=== PATIENT | male | born 1995 | race African-American/Black ===

== ENCOUNTER 2018-11-11 11:26 | Emergency (ER) | payer MEDICAID ==
[~2018-11-11] VITALS: Ht 182.9 cm; Wt 68.0 kg
[~2018-11-11 11:26] MED LIST: FAMO10TA48; ONDA4TAB5; PANTPAK; RANI-185; SUCR1TAB36
[2018-11-11] MEDS ORDERED: PANTOPRAZOLE 40 MG/10 ML VIAL IV STA (11:34)
[2018-11-11] MEDS ORDERED: SODIUM CHLORIDE 0.9% 1,000 ML IVB ONE (11:34)
[2018-11-11 11:45] VITALS: BP 115/88
[2018-11-11] MEDS ORDERED: MORPHINE SULFATE 4 MG/ML SYR/VIAL IV ONE (11:45)
[2018-11-11] MEDS ORDERED: PROCHLORPERAZINE EDISYLATE 5 MG/ML 2ML VIAL IV ONE (11:45)
== END 2018-11-11 13:55 | disposition left against medical advice (07) ==
LOC: ER 11:26 → EDBD 11:26 → ER 13:55
DX: R10.84 Generalized abdominal pain (principal); F12.188 Cannabis abuse with other cannabis-induced disorder; R11.10 Vomiting, unspecified; K21.9 Gastro-esophageal reflux disease without esophagitis; Z79.899 Other long term (current) drug therapy; Z90.49 Acquired absence of other specified parts of digestive tract; Z53.29 Procedure and treatment not carried out because of patient's decision for other reasons
CPT/HCPCS: 94761; 96361; 96374; 96375; 99283; C9113; J0780; J2270; J7030

== ENCOUNTER 2019-03-08 19:04 | Emergency (ER) | payer MEDICAID ==
[~2019-03-08] VITALS: Ht 185.4 cm; Wt 68.0 kg
[2019-03-08] MEDS ORDERED: KETOROLAC TROMETH 30 MG/ML 1ML VIAL IV ONE (19:30)
[2019-03-08] MEDS ORDERED: SODIUM CHLORIDE 0.9% 1,000 ML IVB ONE (19:36)
[2019-03-08] MEDS ORDERED: KETOROLAC TROMETH 60MG/2ML VIAL ONE (19:37)
[2019-03-08 20:01] LABS: Basophils # (auto) 0.1 uL; Basophils % (auto) 0.9 % (0.0-2.0); Eosinophils # (auto) 0.1 uL; Eosinophils % (auto) 0.6 % (0.0-7.0); Hemoglobin 16.1 g/dL (13.5-17.5); Lymphocytes # (auto) 1.9 uL; Lymphocytes % (auto) 19.1 % (10.0-50.0); Mean Corpuscular Hemoglobin 29.7 pg (28.0-32.0); Mean Corpuscular Hgb Conc. 34.4 g/dL (32.0-36.0); Mean Corpuscular Volume 86.4 fL (80.0-100.0); Monocytes # (auto) 0.6 uL; Monocytes % (auto) 6.1 % (0.0-12.0); Neutrophils # (auto) 7.3 uL; Neutrophils % (auto) 73.3 % (37.0-80.0); Nucleated Red Blood Cells % 0.5 %; Platelet Count (auto) 299 10^3/uL (140-450); Red Blood Cells 5.44 10^6/uL (4.5-5.90); Red Cell Distribution Width 12.8 % (11.8-14.3)
[2019-03-08 20:08] LABS: Potassium 3.3 mmol/L (3.5-5.1)
[2019-03-08 20:12] LABS: Albumin 4.3 g/dL (3.4-5.0); BUN/Creatinine Ratio 7.8; Calcium 8.5 mg/dL (8.5-10.1)
[2019-03-08 20:14] LABS: Bilirubin, Total 0.8 mg/dL (0.2-1.0); Total Protein 7.7 g/dL (6.4-8.2)
[2019-03-08] MEDS ORDERED: diphenhdrAMINE HCL 50 MG/1 ML VL IV ONE (20:30)
[2019-03-08] MEDS ORDERED: ONDANSETRON HCL 4 MG/2 ML VIAL IV ONE (21:15)
[2019-03-08] MEDS ORDERED: MORPHINE SULF INJ 2 MG/ML SYRINGE 1ML IV ONE (21:15)
[2019-03-08] MEDS ORDERED: PANTOPRAZOLE 40 MG TAB PO ONE (21:15)
[2019-03-08 21:20] VITALS: BP 152/81
== END 2019-03-08 22:05 | disposition left against medical advice (07) ==
LOC: EDBD 19:04 → ER 19:12
DX: K29.70 Gastritis, unspecified, without bleeding (principal); K21.9 Gastro-esophageal reflux disease without esophagitis; Z90.49 Acquired absence of other specified parts of digestive tract; Z90.89 Acquired absence of other organs; Z87.11 Personal history of peptic ulcer disease; Z79.899 Other long term (current) drug therapy
CPT/HCPCS: 36415; 74176; 80053; 83690; 83735; 85025; 94761; 96361; 96374; 96375; 99284; J1200; J1885; J2270; J2405; J7030

== ENCOUNTER 2020-06-23 19:23 | Emergency (ER) | payer MEDICAID ==
[~2020-06-23 19:23] MED LIST changes: -FAMO10TA48; +FAMO1TAB; +ONDA-144; -ONDA4TAB5
[2020-06-23] MEDS ORDERED: HYDROcodone-ACET 5/325MG TAB PO ONE (20:30)
[2020-06-23 20:50] VITALS: BP 120/75
== END 2020-06-23 21:48 | disposition home or self-care (01) ==
LOC: ER 19:23
DX: S83.8X1A Sprain of other specified parts of right knee, initial encounter (principal); S93.491A Sprain of other ligament of right ankle, initial encounter; S40.811A Abrasion of right upper arm, initial encounter; S80.811A Abrasion, right lower leg, initial encounter; K21.9 Gastro-esophageal reflux disease without esophagitis; Z79.899 Other long term (current) drug therapy; Z87.11 Personal history of peptic ulcer disease; Z90.89 Acquired absence of other organs; Z90.49 Acquired absence of other specified parts of digestive tract; V29.9XXA Motorcycle rider (driver) (passenger) injured in unspecified traffic accident, initial encounter; Y93.I9 Activity, other involving external motion; Y92.89 Other specified places as the place of occurrence of the external cause; Y99.8 Other external cause status
CPT/HCPCS: 72040; 73110; 73562; 73610

== ENCOUNTER 2021-04-18 21:19 | Emergency (ER) | payer MEDICAID ==
[~2021-04-18] VITALS: Ht 182.9 cm; Wt 63.5 kg
[2021-04-18 21:19] VITALS: BP 109/64
[~2021-04-18 21:19] MED LIST changes: +FAMO10TA41; -FAMO1TAB
== END 2021-04-18 22:34 | disposition left against medical advice (07) ==
LOC: ER 21:19
DX: M79.604 Pain in right leg (principal); Z53.21 Procedure and treatment not carried out due to patient leaving prior to being seen by health care provider

== ENCOUNTER → 2024-06-29 | Day surgery (SDC) | payer MEDICAID ==
[~2024-06-29] VITALS: Ht 182.9 cm; Wt 59.0 kg
[~2024-06-29] MED LIST changes: +ALPR0.25 PO; +CYCL-839 PO; +DexAMETHasone SOD PHOS 10MG/1ML VIAL INJ ONE; -FAMO10TA41; +KETAMINE 50mg/ML 1ml syringe ONE; +MEPERIDINE HCL (25 MG/ML) 1ML VIAL ONE; +MIDAZOLAM HCL 2MG/2ML 2ml VIAL (1mg/ml) ONE; -ONDA-144; +ONDANSETRON HCL 4 MG/2 ML VIAL IV ONE; +PANT40T PO; +PROPOFOL 10 MG/ML 20 ML IV ONE; -RANI-185; -SUCR1TAB36; +ZOLP10TA PO; +ZOLP5TAB5 PO; +[UNRECOGNIZED DRUG - CODE] PO; +fentaNYL CITRATE 100 MCG/2 ML VL ONE
[2024-06-29 08:14] LABS: Urine Bacteria None Seen /hpf (None Seen)
[2024-06-29 08:22] LABS: Urine Blood Negative /uL (Negative); Urine Clarity Clear (Clear); Urine Color Yellow (Yellow); Urine Mucus FEW (None Seen); Urine Protein, UAD 1+ (Negative); Urine Specific Gravity 1.037 (1.001-1.035); Urine Urobilinogen Normal (Negative); Urine WBC 2 /hpf (0 - 3); Urine pH 5.5 (5.0-9.0)
[2024-06-29 08:32] LABS: Basophils # (auto) 0.1 10 ^3/uL (0-0.2); Basophils % (auto) 1.2 % (0.0-2.0); Eosinophils # (auto) 0.1 10 ^3/uL (0-0.8); Eosinophils % (auto) 1.7 % (0.0-7.0); Hemoglobin 16.5 g/dL (13.5-17.5); INR 1.13 (0.9-1.15); Lymphocytes # (auto) 1.8 10 ^3/uL (0.4-5.4); Lymphocytes % (auto) 22.4 % (10.0-50.0); Mean Corpuscular Volume 88.6 fL (80.0-100.0); Monocytes # (auto) 0.7 10 ^3/uL (0-1.3); Monocytes % (auto) 8.3 % (0.0-12.0); Neutrophils # (auto) 5.4 10 ^3/uL (1.6-8.6); Neutrophils % (auto) 66.4 % (37.0-80.0); Nucleated Red Blood Cells % 0.1 %; Partial Thromboplastin Time 30.2 SEC (24.5-34.5); Platelet Count (auto) 296 10^3/uL (140-450); Prothrombin Time 11.9 sec (9.3-11.8); Red Blood Cells 5.31 10^6/uL (4.5-5.90); Red Cell Distribution Width 13.8 % (11.8-14.3); White Blood Cell 8.2 10^3/uL (4.4-10.8)
[2024-06-29 09:31] LABS: Alanine Aminotransferase 12 U/L (7-40); Albumin 4.8 g/dL (3.2-4.8); Alkaline Phosphatase 63 U/L (46-116); Anion Gap 8 (5-15); Aspartate Aminotransferase 14 U/L (13-40); Blood Urea Nitrogen 9 mg/dL (9-23); Calcium 10.3 mg/dL (8.7-10.4); Carbon Dioxide 27 mmol/L (20-31); Chloride 108 mmol/L (98-107); Glucose 81 mg/dL (74-106); Potassium 4.5 mmol/L (3.5-5.1); Sodium 143 mmol/L (136-145)
[2024-06-29 09:32] LABS: Total Protein 7.5 g/dL (5.7-8.2)
[2024-06-29 09:47] VITALS: TEMP 98.2; O2SAT 99
[2024-06-29 10:15] VITALS: BP 134/76; PULSE 78; RESP 14; O2SAT 99
[2024-06-29] MEDS: ONDANSETRON HCL 4 MG/2 ML VIAL ONE (10:15)
== END | disposition home or self-care (01) ==
LOC: GI 08:09
PROVIDERS: ATTEND Internal Medicine Gastroenterology
DX: K50.90 Crohn's disease, unspecified, without complications (principal); R10.9 Unspecified abdominal pain; K64.8 Other hemorrhoids; G40.909 Epilepsy, unspecified, not intractable, without status epilepticus; K21.9 Gastro-esophageal reflux disease without esophagitis; Z98.890 Other specified postprocedural states; Z90.49 Acquired absence of other specified parts of digestive tract; Z79.899 Other long term (current) drug therapy
CPT/HCPCS: 36415; 45380; 80053; 81001; 85025; 85610; 85730; 88305; J1100; J2175; J2250; J2405; J2704; J3010; J7030